=== PATIENT | male | born 1965 | race American Indian/Alaskan Native ===

== ENCOUNTER 2019-05-08 05:53 | Emergency (ER) | payer MEDICARE ==
[2019-05-08 06:28] VITALS: BP 133/78
--- NOTE | 2019-05-08 06:51 | XRay Report ---
CHEST 2 VIEW INDICATION / CLINICAL INFORMATION: SOB. Dyspnea. COMPARISON: None available. FINDINGS: SUPPORT DEVICES: None. HEART / MEDIASTINUM: No significant abnormality. LUNGS / PLEURA: Faint airspace opacity within the left lower lobe. Signer Name: Remington Alberts MD Signed: 05/08/2019 6:47 AM Workstation Name: [id number]
[2019-05-08] MEDS ORDERED: DUONEB *Not for PRN Use IH ONE (07:10)
[2019-05-08] MEDS ORDERED: DELTASONE PO ONE (07:10)
--- NOTE | 2019-05-08 07:12 | Emergency Department Report ---
ED Shortness of Breath HPI - General Chief Complaint: Dyspnea/Respdistress Stated Complaint: TITA/SOB/L ARM/LEG PAIN Time Seen by Provider: 05/08/19 07:04 Source: patient Mode of arrival: Ambulatory Limitations: No Limitations - History of Present Illness Initial Comments: This is a 53-year-old male nontoxic, well nourished in appearance, no acute signs of distress presents to the ED with c/o of shortness of breathe with history of asthma. Patient also has a secondary complaint of left shoulder pain x1 week. Denies any trauma. Stated happened after moving some things. Denies any radiation of pain. Patient denies any cough. Patient denies any sick contact. Patient denies any recent travels, long car, recent hospital stays. Patient denies any calf pain or calf tenderness. Patient denies any chest pain, fever, chills, nausea, vomiting, hemoptysis, numbness, tingling, headache or stiff neck. Past medical history includes asthma. MD Complaint: shortness of breath -: This morning Pain Scale: 0 Improves With: nothing Worsens With: nothing Known History Of: asthma Associated Symptoms: denies other symptoms - Related Data Home Medications Medication Instructions Recorded Confirmed Last Taken Budesoni/Formotero 160-4.5(Nf) 2 puff IH BID 07/04/15 07/04/15 07/04/15 [Symbicort 160-4.5 (Nf)] Darunavir [Prezista] 800 mg PO QDAY 07/04/15 07/04/15 07/04/15 Ergocalciferol (Vitamin D2) 2,000 unit PO DAILY 07/04/15 07/04/15 07/04/15 [Vitamin D2] Formoterol Fumarate [Foradil] 12 mcg IH DAILY 07/04/15 07/04/15 07/04/15 Montelukast [Singulair] 10 mg PO QPM 07/04/15 07/04/15 07/04/15 Omeprazole [PriLOSEC] 20 mg PO QDAY 07/04/15 07/04/15 07/04/15 Ritonavir [Norvir] 100 mg PO QDAY 07/04/15 07/04/15 07/04/15 Previous Rx's Medication Instructions Recorded Last Taken Type Azithromycin [Zithromax TAB] 250 mg PO QDAY #5 tablet 07/04/15 Unknown Rx predniSONE [Deltasone] 20 mg PO QDAY #5 tab 07/04/15 Unknown Rx ALBUTEROL Inhaler (OR & NICU) 2 puff IH QID PRN #1 inhalation 05/08/19 Unknown Rx [ProAir HFA Inhaler] Prednisone [predniSONE 10 mg 10 mg PO .TAPER #1 tab.ds.pk 05/08/19 Unknown Rx (6-Day Pack, 21 Tabs)] Allergies Allergy/AdvReac Type Severity Reaction Status Date / Time shellfish derived Allergy Unknown Verified 07/04/15 11:21 ED Review of Systems ROS: Stated complaint: TITA/SOB/L ARM/LEG PAIN Other details as noted in HPI Constitutional: denies: chills, fever Eyes: denies: eye pain, eye discharge, vision change ENT: denies: ear pain, throat pain Respiratory: shortness of breath, wheezing. denies: cough Cardiovascular: denies: chest pain, palpitations Endocrine: no symptoms reported Gastrointestinal: denies: abdominal pain, nausea, diarrhea Genitourinary: denies: urgency, dysuria Musculoskeletal: denies: back pain, joint swelling, arthralgia Skin: denies: rash, lesions Neurological: denies: headache, weakness, paresthesias Psychiatric: denies: anxiety, depression Hematological/Lymphatic: denies: easy bleeding, easy bruising ED Past Medical Hx - Past Medical History Previous Medical History?: Yes Hx GERD: Yes Hx Asthma: Yes Hx HIV: Yes - Surgical History Past Surgical History?: No - Social History Smoking Status: Never Smoker Substance Use Type: None - Medications Home Medications: Home Medications Medication Instructions Recorded Confirmed Last Taken Type Azithromycin [Zithromax TAB] 250 mg PO QDAY #5 tablet 07/04/15 Unknown Rx Budesoni/Formotero 160-4.5(Nf) 2 puff IH BID 07/04/15 07/04/15 07/04/15 History [Symbicort 160-4.5 (Nf)] Darunavir [Prezista] 800 mg PO QDAY 07/04/15 07/04/15 07/04/15 History Ergocalciferol (Vitamin D2) 2,000 unit PO DAILY 07/04/15 07/04/15 07/04/15 History [Vitamin D2] Formoterol Fumarate [Foradil] mcg IH DAILY 07/04/15 07/04/15 07/04/15 History Montelukast [Singulair] 10 mg PO QPM 07/04/15 07/04/15 07/04/15 History Omeprazole [PriLOSEC] 20 mg PO QDAY 07/04/15 07/04/15 07/04/15 History Ritonavir [Norvir] 100 mg PO QDAY 07/04/15 07/04/15 07/04/15 History predniSONE [Deltasone] 20 mg PO QDAY #5 tab 07/04/15 Unknown Rx ALBUTEROL Inhaler (OR & NICU) 2 puff IH QID PRN #1 inhalation 05/08/19 Unknown Rx [ProAir HFA Inhaler] Prednisone [predniSONE 10 mg 10 mg PO .TAPER #1 tab.ds.pk 05/08/19 Unknown Rx (6-Day Pack, 21 Tabs)] ED Physical Exam - General Limitations: No Limitations General appearance: alert, in no apparent distress - Head Head exam: Present: atraumatic, normocephalic - Neck Neck exam: Present: normal inspection, full ROM - Respiratory Respiratory exam: Present: normal lung sounds bilaterally, wheezes. Absent: respiratory distress, rales, rhonchi, stridor, chest wall tenderness, accessory muscle use, decreased breath sounds, prolonged expiratory - Cardiovascular Cardiovascular Exam: Present: regular rate, normal rhythm, normal heart sounds. Absent: bradycardia, tachycardia, irregular rhythm, systolic murmur, diastolic murmur, rubs, gallop - Extremities Exam Extremities exam: Present: normal inspection, full ROM, tenderness, normal capillary refill. Absent: joint swelling - Expanded Upper Extremity Exam Left General: Present: normal inspection Shoulder Exam: Present: normal inspection, full ROM, tenderness. Absent: swelling, abrasion, laceration, ecchymosis, deformity, crepidus, dislocation, erythema, tenderness over AC joint Upper Arm exam: Present: normal inspection, full ROM. Absent: tenderness, swelling Elbow exam: Present: normal inspection, full ROM. Absent: tenderness, swelling Vascular: Present: vascular compromise, normal capillary refill - Back Exam Back exam: Present: normal inspection, full ROM. Absent: tenderness, CVA tenderness (R), CVA tenderness (L), muscle spasm, paraspinal tenderness, vertebral tenderness, rash noted - Neurological Exam Neurological exam: Present: alert, oriented X3, normal gait - Psychiatric Psychiatric exam: Present: normal affect, normal mood - Skin Skin exam: Present: warm, dry, intact, normal color. Absent: rash ED Course Vital Signs 05/08/19 05/08/19 05/08/19 05:57 07:58 08:24 Temperature 98.0 F Pulse Rate 64 Pulse Rate [ 50 L Throughout] Respiratory 18 18 Rate Respiratory 18 Rate [ Throughout] Blood Pressure 133/78 O2 Sat by Pulse 96 Oximetry - Reevaluation(s) Reevaluation #1: 05/08/19 08:24 Patient is speaking in full sentences with no signs of distress noted. ED Medical Decision Making - Lab Data Result diagrams: 05/08/19 07:14 05/08/19 07:18 - Medical Decision Making This is a 53-year-old male that presents with asthma exacerbation. Patient is stable and was examined by me. Chest x-ray has been obtained and dictated by the radiologist within normal limits. EKG and labs unremarkable. Wells criteria for DVT/SVT/PE 0 points. Patient is notified of the x-ray report with no questions noted by the patient. Patient did receive DuoNeb and steroids in the ED which patient the symptoms has resolved and subsided. Posttreatment and there is no wheezing upon auscultation. Patient is discharged with albuterol and prednisone. Patient was referred to Follow-up with a primary care doctor in 3-5 days or if symptoms worsen and continue return to emergency room as soon as possible. At time of discharge, the patient does not seem toxic or ill in appearance. No acute signs of distress noted. Patient agrees to discharge treatment plan of care. No further questions noted by the patient. This chart is dictated with using [employer] Dictation Program - Differential Diagnosis asthma, PE, CFH, ME, COPD, lung disease, PNA Critical care attestation.: If time is entered above; I have spent that time in minutes in the direct care of this critically ill patient, excluding procedure time. ED Disposition Clinical Impression: Shortness of breath Asthma exacerbation Qualifiers: Asthma severity: mild Asthma persistence: intermittent Qualified Code(s): J45.21 - Mild intermittent asthma with (acute) exacerbation Left shoulder strain Qualifiers: Encounter type: initial encounter Qualified Code(s): S46.912A - Strain of unsp ecified muscle, fascia and tendon at shoulder and upper arm level, left arm, initial encounter Disposition: - TO HOME OR SELFCARE Is pt being admited?: No Does the pt Need Aspirin: No Condition: Stable Instructions: Asthma (ED) Additional Instructions: Follow-up with a primary care doctor in 3-5 days or if symptoms worsen and continue return to emergency room as soon as possible. Prescriptions: Prednisone [predniSONE 10 mg (6-Day Pack, 21 Tabs)] 10 mg PO .TAPER #1 tab.ds.pk ALBUTEROL Inhaler (OR & NICU) [ProAir HFA Inhaler] 2 puff IH QID PRN #1 inhalation PRN Reason: Shortness Of Breath Referrals: DMITRIY SCHULTZ MD [Primary Care Provider] - 3-5 Days PRIMARY CARE, [Referring] - 3-5 Days CHETAN ROBERTS MD [Staff Physician] - 3-5 Days [facility] [Outside] - 3-5 Days [facility] [Outside] - 3-5 Days Forms: Work/School Release Form(ED) Time of Disposition: 08:29
[2019-05-08 07:40] LABS: Basophils % (Auto) 0.6 % (0.0-1.8); Eosinophils # (Auto) 0.1 K/mm3 (0.0-0.4); Hematocrit 39.9 % (35.5-45.6); Hemoglobin 13.6 gm/dl (11.8-15.2); Lymphocytes # (Auto) 1.5 K/mm3 (1.2-5.4); Lymphocytes % (Auto) 25.7 % (13.4-35.0); Mean Corpuscular HGB Conc 34 % (32-34); Mean Corpuscular Volume 86 fl (84-94); Monocytes # (Auto) 0.6 K/mm3 (0.0-0.8); Monocytes % (Auto) 9.7 % (0.0-7.3); Platelet Count 323 K/mm3 (140-440); Red Blood Count 4.61 M/mm3 (3.65-5.03); Red Cell Distribution Width 14.1 % (13.2-15.2)
[2019-05-08 08:06] LABS: Alanine Aminotransferase 23 units/L (7-56); BUN/Creatinine Ratio 12; Blood Urea Nitrogen 13 mg/dL (9-20); Calcium 8.6 mg/dL (8.4-10.2); Hemolysis Index 12
== END 2019-05-08 08:42 | disposition home or self-care (01) ==
LOC: ED 05:53
DX: S46.912A Strain of unspecified muscle, fascia and tendon at shoulder and upper arm level, left arm, initial encounter (principal); J45.21 Mild intermittent asthma with (acute) exacerbation; K21.9 Gastro-esophageal reflux disease without esophagitis; J45.909 Unspecified asthma, uncomplicated; Z79.899 Other long term (current) drug therapy; Z91.013 Allergy to seafood; X58.XXXA Exposure to other specified factors, initial encounter; Y93.89 Activity, other specified; Y92.89 Other specified places as the place of occurrence of the external cause; Y99.8 Other external cause status
CPT/HCPCS: 36415; 71046; 80053; 84484; 85025; 93005; 93010; 94640; 99284; J7512; 94644